=== PATIENT | female | born 1960 | race African-American/Black ===

== ENCOUNTER 2022-10-29 09:18 | Emergency (ER) | payer BC ==
[2022-10-29 09:25] VITALS: BP 138/82; RESP 20; TEMP 99.6; BMI 29.0
[2022-10-29 09:58] VITALS: PULSE 89
[2022-10-29] MEDS ORDERED: ACETAMINOPHEN 1000 MG/100 ML BAG IVPB ONE (10:14)
[2022-10-29 10:53] LABS: BASO % 0.6 % (0-2.0); EOS % 2.1 % (0-4.5); HEMATOCRIT 35.9 % (32.4-45.2); HEMOGLOBIN 11.4 GM/dL (10.7-15.3); MCHC 31.7 g/dl (32.0-36.0); MEAN CELL VOLUME 81.9 fl (80-96); MEAN PLT VOLUME 8.2 fl (7.5-11.1); MONO % 17.4 % (3.8-10.2); NEUT % 60.9 % (42.8-82.8); PLATELET COUNT 199 10^3/uL (134-434); RBC 4.38 M/mm3 (3.60-5.2); RDW 14.4 % (11.6-15.6); WHITE BLOOD COUNT 4.9 K/mm3 (4.0-10.0)
[2022-10-29 10:59] LABS: INR 1.12 (0.83-1.09)
[2022-10-29] MEDS ORDERED: ACETAMINOPHEN INJECTION 100 ML IVPB ONE (11:05)
[2022-10-29 11:11] LABS: POTASSIUM 3.8 mmol/L (3.5-5.1)
[2022-10-29 11:14] LABS: BLOOD UREA NITROGEN 10.4 mg/dL (7-18); CALCIUM 9.1 mg/dL (8.5-10.1)
[2022-10-29 11:15] LABS: ALBUMIN 3.6 g/dl (3.4-5.0)
[2022-10-29 11:17] LABS: CREATININE 0.7 mg/dL (0.55-1.3)
[2022-10-29 11:18] LABS: BILIRUBIN,TOTAL 1.1 mg/dL (0.2-1); TOT PROT 7.1 g/dl (6.4-8.2)
== END 2022-10-29 14:22 | disposition home or self-care (01) ==
LOC: JER 09:18
PROC: 3E033NZ Introduction of Analgesics, Hypnotics, Sedatives into Peripheral Vein, Percutaneous Approach (ICD-10-PCS; principal; 2022-10-29)
DX: U07.1 COVID-19 (principal); R06.2 Wheezing; M62.838 Other muscle spasm
CPT/HCPCS: 0241U-QW; 36415; 71045-TC-FY; 71275-TC; 80053; 82962; 84484; 85025; 85610; 93005; 93010; 99285-25; Q9967